=== PATIENT | male | born 1990 | race Caucasian/White ===

== ENCOUNTER 2017-12-12 23:26 | Emergency (ER) | payer SELFPAY ==
[~2017-12-12] VITALS: Ht 175.3 cm; Wt 69.0 kg
[2017-12-12 23:31] VITALS: BP 108/59; PULSE 72; RESP 16; TEMP 97.8; O2SAT 99
--- NOTE | 2017-12-13 00:04 | PD ---
HPI Chief Complaint: Musculoskeletal Complaint Time Seen by Provider: 23:47 Travel History International Travel<30 days: No Contact w/Intl Traveler<30days: No Traveled to known affect area: No History of Present Illness HPI 27yo M with no PMH presents to the ED with c/o right ankle pain today. Pt was on a trampoline at [place] and was jumping and landed her right foot on a basketball and twisted his right ankle at 9pm today. Said he has a lot of pain and has not really tried to walk on it. Said he took advil and pain has improved. Denies any other injuries. Denies any fever, chest pain, sob, n/v, abdominal pain, focal weakness or numbness. PFSH Past Medical History ?: Not Social History Alcohol Use: Yes (RARE) Tobacco Use: No Substance Use: No Review of Systems Except as stated in HPI: all other systems reviewed are Neg Physical Exam Narrative GENERAL: 27yo M in mild distress. SKIN: Focused skin assessment warm/dry. HEAD: Atraumatic. Normocephalic. EYES: Pupils equal and round. No scleral icterus. No injection or drainage. ENT: No nasal bleeding or discharge. Mucous membranes pink and moist. NECK: Trachea midline. No JVD. CARDIOVASCULAR: Regular rate and rhythm. No murmur appreciated. RESPIRATORY: No accessory muscle use. Clear to auscultation. Breath sounds equal bilaterally. GASTROINTESTINAL: Abdomen soft, non-tender, nondistended. MUSCULOSKELETAL: RLE: +Edema in right lateral malleolus. +TTP right medial malleolus. DP 2+. Sensation intact. Cap refill <2 sec. FROM in right knee and hip. NEUROLOGICAL: Awake and alert. No obvious cranial nerve deficits. Motor grossly within normal limits. Normal speech. PSYCHIATRIC: Appropriate mood and affect; insight and judgment normal. Data Data Last Documented VS Vital Signs Date Time Temp Pulse Resp B/P (MAP) Pulse Ox O2 Delivery O2 Flow Rate FiO2 12/12/17 23:31 97.8 72 16 108/59 (75) 99 Room Air Orders Orders Ankle, Limited (Ap&Lat) (12/12/17 ) Ed Discharge Order (12/13/17 00:32) MDM Medical Decision Making Medical Screen Exam Complete: Yes Emergency Medical Condition: Yes Differential Diagnosis Ankle sprain vs. fracture Narrative Course 27yo M here with right ankle pain s/p jumping on trampoline and landing on basketball. Pt currently does not want anything for pain. Said the advil he took helped. Xray right ankle showed soft tissue swelling over the lateral malleolus with no acute fracture or malalignment. Pt reevaluated at bedside and said he does not want splint or crutches. Said his father is a physical therapist and can wrap his ankle. Instructed him to rest, ice, compress and elevate. Pt able to ambulate in the ED. Return precautions given. Diagnosis Primary Impression: Ankle sprain Qualified Codes: S93.401A - Sprain of unspecified ligament of right ankle, initial encounter Patient Instructions: General Instructions Departure Forms: Tests/Procedures Additional Instructions: Please follow up with your primary care physician in 2-3 days. Return to the ED if symptoms worsen. Please rest, ice right ankle, keep right leg elevated. Please take acetaminophen or ibuprofen as needed for pain. Med/Other Pt SpecificInfo: No Change to Meds Disposition: 01 DISCHARGE HOME Condition: Stable Deb Lozano DO Dec 13, 2017 00:04
--- NOTE | 2017-12-13 00:22 | RADRPT ---
EXAM DATE: 12/13/2017 12:04 AM EDT AGE/SEX: 27 years / Male INDICATIONS: Right ankle pain, swelling after patient rolled ankle today CLINICAL DATA: This is the patient's initial encounter. Patient reports that signs and symptoms have been present for 1 day and indicates a pain score of 5/10. MEDICAL/SURGICAL HISTORY: None. None. COMPARISON: No prior exams available for comparison. FINDINGS: Bony structures are intact and in normal alignment. Joints are intact without dislocation or signifi cant arthropathy. Osseous density is normal. There is soft tissue swelling over the lateral malleolu s. No radiopaque foreign bodies seen. CONCLUSION: Soft tissue swelling over the lateral malleolus with no acute fracture or malalignment. Electronically signed by: Andrew Stern MD 12/13/2017 12:21 AM EDT
== END 2017-12-13 00:38 | disposition home or self-care (01) ==
LOC: PHED 23:26
DX: S93.401A Sprain of unspecified ligament of right ankle, initial encounter (principal); X50.1XXA Overexertion from prolonged static or awkward postures, initial encounter; Y93.44 Activity, trampolining; Y92.831 Amusement park as the place of occurrence of the external cause
CPT/HCPCS: 73600; 99283